=== PATIENT | female | born 1970 | race Two or more races ===

== ENCOUNTER 2018-11-17 22:34 | Emergency (ER) | payer OTHER ==
[2018-11-17 22:47] VITALS: TEMP 98.1; BMI 25.0
[2018-11-17] MEDS ORDERED: IBUPROFEN 400 MG TABLET (FP) PO ONE (23:13)
[2018-11-17] MEDS ORDERED: DIPHTH,PERTUSS(ACELL),TET 0.5 ML DISP.SYRIN IM ONE (23:52)
[2018-11-18] MEDS ORDERED: IBUPROFEN 400 MG TABLET (FP) PO ONE (00:25)
[2018-11-18] MEDS ORDERED: DIPHTH,PERTUSS(ACELL),TET 0.5 ML DISP.SYRIN IM ONE (00:26)
--- NOTE | 2018-11-18 00:44 | PDOC ---
History of Present Illness - General Chief Complaint: Laceration Stated Complaint: RIGHT EAR LOBE BLEEDING Time Seen by Provider: 11/17/18 23:26 History Source: Patient Exam Limitations: No Limitations Past History - Past Medical History Allergies/Adverse Reactions: Allergies Allergy/AdvReac Type Severity Reaction Status Date / Time No Known Allergies Allergy Verified 11/17/18 23:04 - Suicide/Smoking/Psychosocial Hx Smoking History: Never smoked Hx Alcohol Use: No Drug/Substance Use Hx: No *Physical Exam - Vital Signs Last Vital Signs Temp Pulse Resp BP Pulse Ox 98.1 F 79 20 158/90 100 11/17/18 22:43 11/17/18 22:43 11/17/18 22:43 11/17/18 22:43 11/17/18 22:43 - Physical Exam General Appearance: No: Apparent Distress HEENT: positive: Other (+R earlobe laceration (through and through), no active bleeding now, no other trauma noted) Neurologic: positive: Alert, Normal Mood/Affect ED Treatment Course - Medications Given in the ED: ED Medications Discontinued Medications Generic Name Dose Route Start Last Admin Trade Name Osei PRN Reason Stop Dose Admin Diphtheria/Tetanus/Acell Pertussis 0.5 ml 11/17/18 23:52 11/18/18 00:31 Boostrix - IM 11/17/18 23:53 0.5 ml .ONCE ONE Administration Ibuprofen 800 mg 11/17/18 23:13 11/18/18 00:31 Motrin - PO 11/17/18 23:14 800 mg ONCE ONE Administration Medical Decision Making - Medical Decision Making 48 y/o F presents with R earlobe laceration from today. States she was fixing her hair and her earring got caught in her hair, which she did not realize and then the earring pulled her ear. Denies other trauma. Unsure of last tetanus R earlobe laceration D/W plasticsDr. Canseco - states it is preferred for such a laceration to have delayed closure; recommends to have patient come in her office in 2 days for repair of site; for now, recommends can apply some Bacitracin Given Tetanus Plan d/w patient 11/18/18 00:40 *DC/Admit/Observation/Transfer Diagnosis at time of Disposition: Laceration of earlobe Qualifiers: Encounter type: initial encounter Laterality: right Qualified Code(s): S01.311A - Laceration without foreign body of right ear, initial encounter - Discharge Dispostion Disposition: HOME Condition at time of disposition: Stable Decision to Admit order: No - Referrals Referrals: Ad Canseco MD [Staff Physician] - 11/19/18 - Patient Instructions Printed Discharge Instructions: DI for Laceration Repair Additional Instructions: Thank you for choosing [facility]. It was a pleasure taking care of you. Please call Dr. Canseco's office tomorrow for repair of the site For now, you may apply bacitracin along site twice a day Return to the Emergency Department if your symptoms worsen or persist, have heavy bleeding, swelling, pustular discharge or other concerning symptoms. - Post Discharge Activity
[2018-11-18 01:15] VITALS: BP 150/78; PULSE 78
== END 2018-11-18 01:15 | disposition home or self-care (01) ==
LOC: JER 22:34
PROC: 3E0234Z Introduction of Serum, Toxoid and Vaccine into Muscle, Percutaneous Approach (ICD-10-PCS; principal; 2018-11-17)
DX: S01.311A Laceration without foreign body of right ear, initial encounter (principal); W26.8XXA Contact with other sharp object(s), not elsewhere classified, initial encounter; Y93.89 Activity, other specified; Y92.018 Other place in single-family (private) house as the place of occurrence of the external cause; Y99.8 Other external cause status
CPT/HCPCS: 90471; 90715; 99281-25